=== PATIENT | female | born 1955 | race Caucasian/White ===

== ENCOUNTER 2017-07-02 21:59 | Inpatient (IN) | payer OTHER ==
[~2017-07-02] VITALS: Ht 154.9 cm; Wt 95.1 kg
--- NOTE | ~2017-07-02 | EKG ---
[address] [address] ELECTROCARDIOGRAM REPORT Name: SERVANDO CHAND Galindo Room #: 443-P [facility] IN ..#: [id number] Admission: 07/03/17 Attend Phys: Joshua Cortes MD Discharge: Date of : 51 Report #: [id number] THIS REPORT FOR: //name// [facility] ED Test Date: 2017-07-02 Test Time: 23:48:25 Pat Name: SERVANDO CHAND Department: Room: 443 Gender: F Department Secretary: MZOOK : 1955 Requested By: Hubert Ray Order Number: [id number] MD: Houston Peña Measurements Intervals [place] Rate: 74 P: MT: QRS: 57 QRSD: 97 T: 56 QT: 396 QTc: 440 Interpretive Statements Atrial fibrillation No previous ECG available for comparison Electronically Signed On 07-05-2017 13:30:26 CDT by Houston Peña [email or web address] <ELECTRONICALLY SIGNED> By: Houston Peña MD, [facility] 07/05/17 1330 [id number] Houston Peña MD, FACC /EPI
[2017-07-02 22:01] VITALS: BP 116/71
[2017-07-02 23:07] LABS: HEMATOCRIT 36.6 % (37.0-47.0); MCH 28.2 pg (26.0-34.0); MCHC 32.7 g/dL (28.0-37.0); MCV 86.2 fL (80.0-100.0); RBC 4.25 mil/uL (4.20-5.00); RDW 16.1 % (10.5-14.5); WBC 9.3 thou/uL (4.0-11.0)
[2017-07-02 23:10] LABS: ANION GAP 7 mmol/L (7-16); BUN 10 mg/dL (7-18); CHLORIDE 103 mmol/L (98-107); CO2 32 mmol/L (21-32); CREATININE 1.2 mg/dL (0.6-1.0); GLUCOSE 114 mg/dL (74-106); POTASSIUM 3.3 mmol/L (3.5-5.1); SODIUM 142 mmol/L (136-145)
[2017-07-02 23:19] LABS: TROPONIN-I < 0.04 ng/mL (<0.06)
[2017-07-03 03:16] VITALS: BP 126/82
[2017-07-03] MEDS ORDERED: NORCO 10-325 T1 EACH PO (05:18)
[2017-07-03 06:30] LABS: CALCIUM 9.1 mg/dL (8.5-10.1); CREATININE 1.2 mg/dL (0.6-1.0); POTASSIUM 4.1 mmol/L (3.5-5.1)
[2017-07-03] MEDS ORDERED: CARDIZEM CD240 MG PO (07:24)
[2017-07-03] MEDS ORDERED: PAXIL10 MG PO (07:51)
[2017-07-03] MEDS ORDERED: LOPRESSOR50 PO (07:51)
[2017-07-03] MEDS ORDERED: OMEPRAZOLE40 MG PO (07:52)
[2017-07-03] MEDS ORDERED: COLACE100 MG PO (07:53)
[2017-07-03] MEDS ORDERED: BENADRYL25 MG PO (07:54)
[2017-07-03] MEDS ORDERED: XARELTO20 MG PO (07:54)
[2017-07-03] MEDS ORDERED: OXYCONTIN20 M1 PO ×4 (07:55→08:01)
[2017-07-03] MEDS ORDERED: SENNA8.6 MG PO (07:58)
[2017-07-03] MEDS ORDERED: LEXAPRO 10 MG T10 M1 PO (08:04)
[2017-07-03 08:26] VITALS: BP 133/64
[2017-07-03 16:28] VITALS: BP 113/69
[2017-07-03 19:31] VITALS: BP 125/98
[2017-07-04 03:50] VITALS: BP 128/69
[2017-07-04 08:00] VITALS: BP 119/90
[2017-07-04 15:58] VITALS: BP 120/68
[2017-07-04 19:37] VITALS: BP 124/74
[2017-07-05 04:43] VITALS: BP 127/75
[2017-07-05 05:30] LABS: HEMATOCRIT 32.4 % (37.0-47.0); HEMOGLOBIN 10.7 gm/dL (12.0-15.0); MCH 28.2 pg (26.0-34.0); MCV 85.4 fL (80.0-100.0); RBC 3.8 mil/uL (4.20-5.00); RDW 16.6 % (10.5-14.5); WBC 9.1 thou/uL (4.0-11.0)
[2017-07-05 05:34] LABS: CALCIUM 9.3 mg/dL (8.5-10.1); CREATININE 1.1 mg/dL (0.6-1.0)
[2017-07-05 08:00] VITALS: BP 128/74
[2017-07-05 16:00] VITALS: BP 118/81
[2017-07-05 21:05] VITALS: BP 127/72
[2017-07-06 03:33] VITALS: BP 132/81
[2017-07-06 05:34] LABS: HEMATOCRIT 33.7 % (37.0-47.0); MCH 28.1 pg (26.0-34.0); MCHC 32.7 g/dL (28.0-37.0); MCV 85.8 fL (80.0-100.0); RBC 3.93 mil/uL (4.20-5.00); RDW 16.6 % (10.5-14.5); WBC 7.5 thou/uL (4.0-11.0)
[2017-07-06 05:51] LABS: CALCIUM 9.1 mg/dL (8.5-10.1); POTASSIUM 3.5 mmol/L (3.5-5.1)
[2017-07-06 08:00] VITALS: BP 127/76
[2017-07-06 20:30] VITALS: BP 149/90
[2017-07-07 07:51] VITALS: BP 151/95
[2017-07-07 09:37] LABS: HEMATOCRIT 37.8 % (37.0-47.0); HEMOGLOBIN 12.4 gm/dL (12.0-15.0); MCHC 32.7 g/dL (28.0-37.0); MCV 85.7 fL (80.0-100.0); RBC 4.41 mil/uL (4.20-5.00); RDW 16.2 % (10.5-14.5); WBC 8.6 thou/uL (4.0-11.0)
[2017-07-07 09:58] LABS: CALCIUM 9.2 mg/dL (8.5-10.1); POTASSIUM 3.5 mmol/L (3.5-5.1)
[2017-07-07 13:49] LABS: URINE BILIRUBIN NEGATIVE (Negative); URINE BLOOD NEGATIVE (Negative); URINE CLARITY CLEAR; URINE COLOR YELLOW; URINE GLUCOSE-RANDOM* NEGATIVE (Negative); URINE KETONES NEGATIVE (Negative); URINE LEUKOCYTES-REFLEX NEGATIVE (Negative); URINE NITRITE-REFLEX NEGATIVE (Negative); URINE PROTEIN (DIPSTICK) NEGATIVE (Negative); URINE UROBILINOGEN 0.2 E.U./dl (0.2-1.0)
[2017-07-07] MEDS ORDERED: PREDNISONE 10 M10 MG PO (14:36)
[2017-07-07] MEDS ORDERED: CEFPODOXIME PR200 M1 PO (14:42)
[2017-07-07 15:31] VITALS: BP 151/95
== END 2017-07-07 16:10 | disposition home or self-care (01) | DRG 194 ==
LOC: ER 21:59 → EROBS 07-03 02:17 → 4S 07-03 02:17 → SICU 07-06 10:05 → ENTRNSPT 07-07 15:57 → EDTRNSPTSTS 07-07 15:58 → SICU 07-07 16:10
PROVIDERS: Emergency Medicine; Hospitalist; Internal Medicine; Nurse Practitioner Family
PROC: 5A09357 Assistance with Respiratory Ventilation, Less than 24 Consecutive Hours, Continuous Positive Airway Pressure (ICD-10-PCS; principal; 2017-07-03)
PROC: 5A09357 Assistance with Respiratory Ventilation, Less than 24 Consecutive Hours, Continuous Positive Airway Pressure (ICD-10-PCS; 2017-07-04)
DX: J18.1 Lobar pneumonia, unspecified organism (principal); J44.1 Chronic obstructive pulmonary disease with (acute) exacerbation; N39.0 Urinary tract infection, site not specified; I10 Essential (primary) hypertension; I48.91 Unspecified atrial fibrillation; G47.33 Obstructive sleep apnea (adult) (pediatric); Z87.891 Personal history of nicotine dependence; Z79.899 Other long term (current) drug therapy
CPT/HCPCS: 10195; 15000